=== PATIENT | male | born 1970 ===

== ENCOUNTER 2020-11-05 11:04 | Inpatient (IN) | payer BC ==
[~2020-11-05] VITALS: Ht 172.7 cm; Wt 95.6 kg
[2021-01-14] VITALS (12 sets, daily range): BP systolic 116–145; BP diastolic 72–95; PULSE 59–95; TEMP 97.5–98.9
[2021-01-14] MEDS ORDERED: ZESTRIL 10MG10 MG PO (07:54)
[2021-01-14] MEDS ORDERED: VYVANSE30 MG PO (07:55)
[2021-01-14] MEDS ORDERED: PRILOSEC 20MG20 MG PO (07:55)
--- NOTE | 2021-01-14 08:15 | NUR ---
The patient ambulated back to [place] [facility] independently using a steady gait and appeared to tolerate the activity well. Vital signs obtained. Consent signed. 18G IV started in left hand with one stick, LR infusing without difficulty. Assessment completed. Initial scrub completed. VLADIMIR hose placed to non operative leg. brought back to be at his bedside. Call light is within reach. Will continue to monitor the patient.
--- NOTE | 2021-01-14 12:10 | NUR ---
PT ARRIVED TO THE FLOOR IN ROOM 327 AT 1205. PT IS ALERT AND ORIENTED BUT DROWSY POST OP. VITALS ARE STABLE AND PT DOES NOT COMPLAIN OF PAIN OR N/V. RIGHT KNEE IS WRAPPED IN LARRY BANDAGE. BOWEL SOUNDS ARE ACTIVE IN ALL QUADRANTS. IV TO LEFT HAND INFUSING FLUIDS. HEAD TO TOE ASSESSMENT COMPLETE. IS IN ROOM AND PT IS RESTING. CALL LIGHT IS WITHIN REACH.
--- NOTE | 2021-01-14 20:00 | NUR ---
PT AMBULATING IN HALLWAY ON OWN WITH WALKER AND STEADY GAIT. IS ALERT AND ORIENTED X4. REPORTS PAIN TO RT KNEE 3/10, WORRIED HE WILL GET BEHIND ON THE PAIN AND ASKS FOR MEDS PRN. LEANN D/I TO RT KNEE, ICE PACK REPLACED.
--- NOTE | 2021-01-14 22:10 | NUR ---
MEDICATED WITH OXYCODONE 5MG PO FOR RT KNEE PAIN 08/15.
--- NOTE | 2021-01-15 00:34 | NUR ---
PT REPORTS PAIN TO RT KNEE, TRAMADOL 100MG PO GIVEN AT THIS TIME.
--- NOTE | 2021-01-15 01:53 | NUR ---
PT REPORTS MILD PAIN TO RT KNEE, TAKES SCHEDULED ES TYLENOL AND OXYCODONE 5MG PO AT THIS TIME.
[2021-01-15 03:12] VITALS: BP 119/73; PULSE 95; TEMP 98.6
--- NOTE | 2021-01-15 06:14 | NUR ---
PT TAKES SCHEDULED AM MED INCLUDING OXYCODONE 5MG PO FOR RT KNEE PAIN.
[2021-01-15 07:10] LABS: HEMATOCRIT 40.5 % (42.0-52.0); HEMOGLOBIN 13.4 g/dl (13.5-18.0)
[2021-01-15 07:40] VITALS: BP 144/88; PULSE 91; TEMP 98.6
--- NOTE | 2021-01-15 09:33 | NUR ---
VALENCIA met with the patient to discuss discharge plan. The patient lives in [place] with his , Ilene Horton (ph#[phone]), and three children. He reports independence with ADLs and does not have any DME. The patient's PCP is Dr. Sher Mijares and he receives his medications from [facility]. He reports no difficulties obtaining his meds. The patient does not have a DPOA-HC, but he was interested in obtaining a form. VALENCIA provided him with a form. The patient plans to return home with with family and receive outpatient PT at [facility] upon discharge. No additional needs at this time. *Discharge plan: home with family and outpatient PT*
[2021-01-15 11:26] VITALS: BP 131/92; PULSE 91; TEMP 97.6
[2021-01-15] MEDS ORDERED: ASPI325T6 PO (12:36)
[2021-01-15] MEDS ORDERED: ROXICODONE 55 MG/TAB PO (12:37)
[2021-01-15] MEDS ORDERED: ULTRAM 50MG TAB50 MG PO (12:37)
[2021-01-15] MEDS ORDERED: SENOKOT S 50 MG1 TAB PO (12:38)
--- NOTE | 2021-01-15 12:50 | NUR ---
Initial visit; Patient thanked Piggery Worker for looking in on him and offering God's blessings. Patient declined further spiritual needs today.
== END 2021-01-15 14:25 | disposition home or self-care (01) | DRG 470 ==
LOC: SURG 01-14 07:39 → INPTSU 01-14 07:39 → SURG 01-14 10:30
PROVIDERS: ADMIT Orthopaedic Surgery
PROC: 0SRC0J9 Replacement of Right Knee Joint with Synthetic Substitute, Cemented, Open Approach (ICD-10-PCS; principal; 2021-01-14 10:30)
DX: M17.11 Unilateral primary osteoarthritis, right knee (principal); M81.0 Age-related osteoporosis without current pathological fracture; J45.909 Unspecified asthma, uncomplicated
CPT/HCPCS: A9284; C1713; C1776; J0690; J1100; J1885; J2250; J2405; J2704; J3010; J7120

== ENCOUNTER → 2021-01-21 | Outpatient (CLI) | payer BC ==
[~2021-01-21] MED LIST: ASPI325T6 PO; PRILOSEC 20MG20 MG PO; ROXICODONE 55 MG/TAB PO; SENOKOT S 50 MG1 TAB PO; ULTRAM 50MG TAB50 MG PO; VYVANSE30 MG PO; ZESTRIL 10MG10 MG PO
== END ==
LOC: COL.VAS 09:58
DX: M25.561 Pain in right knee (principal); M79.661 Pain in right lower leg; Z96.651 Presence of right artificial knee joint